=== PATIENT | male | born 1950 | race Caucasian/White ===

== ENCOUNTER 2021-06-26 10:51 | Emergency (ER) | payer MEDICARE ==
[~2021-06-26] VITALS: Ht 180.3 cm; Wt 104.3 kg
[2021-06-26] MEDS ORDERED: ACETAMINOPHEN500 MG PO (14:03)
== END 2021-06-26 14:14 | disposition home or self-care (01) ==
LOC: ER 10:51 → EDSEX 10:51 → ER 14:14
DX: M25.572 Pain in left ankle and joints of left foot (principal); Z98.890 Other specified postprocedural states
CPT/HCPCS: 73610

== ENCOUNTER → 2021-08-22 | Outpatient (CLI) | payer MEDICARE ==
[~2021-08-22] MED LIST: ACETAMINOPHEN500 MG PO
[2021-08-22 12:12] LABS: Campylobacter Sp Not Detected (NOT DETECT); Enteroaggregative E. coli-EAEC Not Detected (NOT DETECT); Plesiomonas Shigelloides Not Detected (NOT DETECT); Salmonella Sp Not Detected (NOT DETECT); Vibrio Cholerae Not Detected (NOT DETECT); Vibrio Sp Not Detected (NOT DETECT); Yersinia Enterocolitica Not Detected (NOT DETECT)
[2021-08-22 12:13] LABS: Adenovirus F 40/41 Not Detected (NOT DETECT); Astrovirus Not Detected (NOT DETECT); Cryptosporidium Not Detected (NOT DETECT); Cyclospora Cayetanensis Not Detected (NOT DETECT); E. Coli O157 Not Detected (NOT DETECT); Entamoeba Histolytica Not Detected (NOT DETECT); Enteropathogenic E. coli-EPEC Not Detected (NOT DETECT); Enterotoxigenic E. coli-ETEC Not Detected (NOT DETECT); Giardia Lamblia Not Detected (NOT DETECT); Norovirus GI/GII Not Detected (NOT DETECT); Rotavirus A Not Detected (NOT DETECT); Sapovirus Not Detected (NOT DETECT); Shiga Toxin-prod E. coli-STEC Not Detected (NOT DETECT); Shigella/Enteroin E. coli-EIEC Not Detected (NOT DETECT)
== END | disposition home or self-care (01) ==
LOC: LAB SHORT 09:28 → LAB 09:28
PROVIDERS: Physician Assistant Medical
DX: R19.7 Diarrhea, unspecified (principal)
CPT/HCPCS: 87324; 87507

== ENCOUNTER → 2021-09-03 | Outpatient (CLI) | payer MEDICARE ==
[~2021-09-03] MED LIST changes: +ELIQUIS5 M2 PO; +LOSA50 PO; +SOTO80 PO
== END | disposition home or self-care (01) ==
LOC: LAB SHORT 08:49 → PLD 08:49
DX: L57.0 Actinic keratosis (principal)
CPT/HCPCS: 88305

== ENCOUNTER 2021-12-01 08:15 | Day surgery (SDC) | payer MEDICARE ==
[~2021-12-01] VITALS: Ht 182.9 cm; Wt 103.3 kg
== END 2021-12-01 10:30 | disposition home or self-care (01) ==
LOC: ORSCSDS 08:15
PROVIDERS: Student in an Organized Health Care Education/Training Program
PROC: 0DB98ZX Excision of Duodenum, Via Natural or Artificial Opening Endoscopic, Diagnostic (ICD-10-PCS; principal; 2021-12-01 09:45)
PROC: 0DB58ZX Excision of Esophagus, Via Natural or Artificial Opening Endoscopic, Diagnostic (ICD-10-PCS; principal; 2021-12-01 09:45)
PROC: 0DB68ZX Excision of Stomach, Via Natural or Artificial Opening Endoscopic, Diagnostic (ICD-10-PCS; principal; 2021-12-01 09:45)
DX: R13.10 Dysphagia, unspecified (principal); K21.00 Gastro-esophageal reflux disease with esophagitis, without bleeding; K29.70 Gastritis, unspecified, without bleeding; K31.A19 Gastric intestinal metaplasia without dysplasia, unspecified site; K31.7 Polyp of stomach and duodenum; R19.7 Diarrhea, unspecified; I48.91 Unspecified atrial fibrillation; I25.10 Atherosclerotic heart disease of native coronary artery without angina pectoris; E11.22 Type 2 diabetes mellitus with diabetic chronic kidney disease; N18.9 Chronic kidney disease, unspecified; G47.33 Obstructive sleep apnea (adult) (pediatric); Z79.01 Long term (current) use of anticoagulants; Z79.899 Other long term (current) drug therapy
CPT/HCPCS: 82947; 88305; 88312; 88342; J2704; J7120

== ENCOUNTER 2021-12-12 10:52 | Emergency (ER) | payer MEDICARE ==
[~2021-12-12] VITALS: Ht 182.9 cm; Wt 102.1 kg
[2021-12-12] MEDS ORDERED: BETAPACE PO (11:21)
[2021-12-12] MEDS ORDERED: BASAGLAR K100 UNIT/8 SQ (11:21)
[2021-12-12] MEDS ORDERED: SILDENAFIL CITR20 M1 PO (11:21)
[2021-12-12 11:52] LABS: BASOPHILS ABSOLUTE AUTO 0.04 K/mm3 (0.00-0.23); BASOPHILS PERCENT AUTO 1 % (0-2); EOSINOPHILS ABSOLUTE AUTO 0.13 K/mm3 (0.00-0.68); EOSINOPHILS PERCENT AUTO 2 % (0-6); Hematocrit 43.9 % (37.0-53.0); Hemoglobin 14.6 g/dL (13.5-17.5); IMMATURE GRAN ABSOLUTE AUTO 0.01 K/mm3 (0.00-0.10); IMMATURE GRAN PERCENT AUTO 0 % (0-1); LYMPHOCYTES ABSOLUTE AUTO 2.82 K/mm3 (0.84-5.20); LYMPHOCYTES PERCENT AUTO 49 % (21-46); MONOCYTES ABSOLUTE AUTO 0.39 K/mm3 (0.16-1.47); MONOCYTES PERCENT AUTO 7 % (4-13); Mean Corpuscular HGB 30.4 pg (26.0-34.0); Mean Corpuscular HGB Conc 33.3 g/dL (31.5-36.5); Mean Corpuscular Volume 91 fL (80-100); Mean Platelet Volume 10.9 fL (9.1-12.4); NEUTROPHILS ABSOLUTE AUTO 2.43 K/mm3 (1.96-9.15); NEUTROPHILS PERCENT AUTO 42 % (41-73); Platelet Count 152 K/mm3 (150-400); RDW Coefficient Variation 12.6 % (11.7-14.2); Red Blood Cell Count 4.81 M/mm3 (4.30-5.90); White Blood Cell Count 5.82 K/mm3 (4.00-11.30)
[2021-12-12 12:26] LABS: Albumin, Blood 3.2 g/dL (3.4-5.0); Albumin/Globulin Ratio 0.9 (0.8-1.8); Bilirubin, Total 0.5 mg/dL (0.1-1.0); Calcium, Blood 8.9 mg/dL (8.5-10.1); Creatinine, Blood 1.57 mg/dL (0.60-1.20); Globulin, Blood 3.4 g/dL (2.2-4.0); Magnesium, Blood 2.3 mg/dL (1.6-2.4); Potassium, Blood 5.4 mmol/L (3.5-5.5); Total Protein, Blood 6.6 g/dL (6.4-8.2)
== END 2021-12-12 13:10 | disposition home or self-care (01) ==
LOC: ER 10:52
PROVIDERS: Physician Assistant
DX: I48.91 Unspecified atrial fibrillation (principal); K80.20 Calculus of gallbladder without cholecystitis without obstruction; Z79.899 Other long term (current) drug therapy
CPT/HCPCS: 71045; 76705; 80053; 83735; 83880; 84484; 85025; 93005; 93010; 99285-25

== ENCOUNTER 2023-02-26 10:08 | Emergency (ER) | payer MEDICARE ==
[~2023-02-26] VITALS: Ht 182.9 cm; Wt 99.8 kg
[~2023-02-26 10:08] MED LIST changes: +BASAGLAR K100 UNIT/8 SQ; +BETAPACE PO; +SILDENAFIL CITR20 M1 PO
[2023-02-26 10:15] VITALS: BP 133/75
== END 2023-02-26 12:19 | disposition home or self-care (01) ==
LOC: ER 10:08
DX: S86.112A Strain of other muscle(s) and tendon(s) of posterior muscle group at lower leg level, left leg, initial encounter (principal); I48.91 Unspecified atrial fibrillation; Z79.4 Long term (current) use of insulin; Z79.899 Other long term (current) drug therapy; X50.9XXA Other and unspecified overexertion or strenuous movements or postures, initial encounter; Y93.89 Activity, other specified; Y99.0 Civilian activity done for income or pay
CPT/HCPCS: 93971; 99283-25

== ENCOUNTER 2023-04-06 16:03 | Emergency (ER) | payer MEDICARE ==
[~2023-04-06] VITALS: Ht 180.3 cm; Wt 95.2 kg
[2023-04-06 16:25] VITALS: BP 168/82
[2023-04-06 16:55] LABS: BASOPHILS ABSOLUTE AUTO 0.03 K/mm3 (0.00-0.23); BASOPHILS PERCENT AUTO 0 % (0-2); EOSINOPHILS ABSOLUTE AUTO 0.03 K/mm3 (0.00-0.68); EOSINOPHILS PERCENT AUTO 0 % (0-6); Hematocrit 44.2 % (37.0-53.0); Hemoglobin 14.9 g/dL (13.5-17.5); IMMATURE GRAN ABSOLUTE AUTO 0.01 K/mm3 (0.00-0.10); IMMATURE GRAN PERCENT AUTO 0 % (0-1); LYMPHOCYTES ABSOLUTE AUTO 1.56 K/mm3 (0.84-5.20); LYMPHOCYTES PERCENT AUTO 19 % (21-46); MONOCYTES ABSOLUTE AUTO 0.78 K/mm3 (0.16-1.47); MONOCYTES PERCENT AUTO 9 % (4-13); Mean Corpuscular HGB 29.9 pg (26.0-34.0); Mean Corpuscular HGB Conc 33.7 g/dL (31.5-36.5); Mean Corpuscular Volume 89 fL (80-100); Mean Platelet Volume 10.2 fL (9.1-12.4); NEUTROPHILS ABSOLUTE AUTO 5.92 K/mm3 (1.96-9.15); NEUTROPHILS PERCENT AUTO 71 % (41-73); Platelet Count 200 K/mm3 (150-400); RDW Coefficient Variation 12.6 % (11.7-14.2); RDW Standard Deviation 40.8 fL (35.1-46.3); Red Blood Cell Count 4.98 M/mm3 (4.30-5.90); White Blood Cell Count 8.33 K/mm3 (4.00-11.30)
[2023-04-06 17:23] LABS: Magnesium, Blood 2.1 mg/dL (1.6-2.4)
[2023-04-06 17:24] LABS: Albumin, Blood 3.5 g/dL (3.4-5.0); Albumin/Globulin Ratio 0.7 (0.8-1.8); Bilirubin, Total 0.9 mg/dL (0.1-1.0); Bun/Creatinine Ratio 12.2 (12.0-20.0); Calcium, Blood 9.9 mg/dL (8.5-10.1); Creatinine, Blood 2.05 mg/dL (0.60-1.20); Globulin, Blood 4.7 g/dL (2.2-4.0); Potassium, Blood 4.1 mmol/L (3.5-5.5); Total Protein, Blood 8.2 g/dL (6.4-8.2)
[2023-04-06] MEDS ORDERED: DiphenhydrAMINE HCl 50 MG/ML 1ML Vial IV ONE (20:30)
[2023-04-06] MEDS ORDERED: Metoclopramide HCl 5MG / ML 2ML Vial IV ONE (20:30)
[2023-04-06] MEDS ORDERED: NS 1,000 ML IV SCH (20:30)
[2023-04-06] MEDS ORDERED: Ondansetron HCl 2 MG / ML 2ML Vial IV ONE (21:40)
[2023-04-06 21:45] LABS: Source, Urine Clean Catch
[2023-04-06] MEDS ORDERED: Ketorolac Tromethamine 15mg Vial IV ONE (21:50)
[2023-04-06] MEDS ORDERED: DiphenhydrAMINE HCl 50 MG/ML 1ML Vial IM ONE (21:50)
[2023-04-06 21:58] LABS: Appearance, Urine Clear (Clear); Bilirubin, Urine Neg (Neg); Blood, Urine 2+ (Neg); Color, Urine Yellow (P-Yellow); Glucose Qualitative, Urine 2+ (Neg); Ketones, Urine 1+ (Neg); Leukocyte Esterase, Urine Neg (Neg); Nitrite, Urine Neg (Neg); Protein, Urine 4+ (Neg); Urobilinogen, Urine NORM (Normal)
[2023-04-06] MEDS ORDERED: Promethazine HCl 25 MG Tab PO ONE (22:25)
[2023-04-06 22:30] LABS: Bacteria Few /hpf; Red Blood Cells, Urine 0-2 /hpf (0-2); Squamous Epithelial Cells Few /hpf (Few); White Blood Cells, Urine 0-2 /hpf (0-5)
[2023-04-06] MEDS ORDERED: PROM25 PO (23:14)
== END 2023-04-06 23:22 | disposition home or self-care (01) ==
LOC: ER 16:03
PROVIDERS: Physician Assistant; Student in an Organized Health Care Education/Training Program
DX: R11.2 Nausea with vomiting, unspecified (principal); N17.9 Acute kidney failure, unspecified; E11.9 Type 2 diabetes mellitus without complications; I25.10 Atherosclerotic heart disease of native coronary artery without angina pectoris; Z79.4 Long term (current) use of insulin; Z79.899 Other long term (current) drug therapy
CPT/HCPCS: 80053; 81001; 83690; 83735; 85025; 93005; 93010; 96361; 96374; 96375; 96376; 99284-25; A9270; J1200; J1885; J2405; J2765; J7030

== ENCOUNTER → 2024-01-26 | Outpatient (CLI) | payer OTHER ==
[~2024-01-26] MED LIST changes: +PROM25 PO
[2024-01-26 16:09] LABS: BASOPHILS ABSOLUTE AUTO 0.05 K/mm3 (0.00-0.23); BASOPHILS PERCENT AUTO 1 % (0-2); EOSINOPHILS ABSOLUTE AUTO 0.09 K/mm3 (0.00-0.68); EOSINOPHILS PERCENT AUTO 2 % (0-6); Hematocrit 45.6 % (37.0-53.0); Hemoglobin 15.8 g/dL (13.5-17.5); IMMATURE GRAN ABSOLUTE AUTO 0.01 K/mm3 (0.00-0.10); IMMATURE GRAN PERCENT AUTO 0 % (0-1); LYMPHOCYTES ABSOLUTE AUTO 2.09 K/mm3 (0.84-5.20); LYMPHOCYTES PERCENT AUTO 38 % (21-46); MONOCYTES ABSOLUTE AUTO 0.43 K/mm3 (0.16-1.47); MONOCYTES PERCENT AUTO 8 % (4-13); Mean Corpuscular HGB Conc 34.6 g/dL (31.5-36.5); Mean Corpuscular Volume 90 fL (80-100); Mean Platelet Volume 10.6 fL (9.1-12.4); NEUTROPHILS ABSOLUTE AUTO 2.83 K/mm3 (1.96-9.15); NEUTROPHILS PERCENT AUTO 52 % (41-73); Platelet Count 151 K/mm3 (150-400); RDW Coefficient Variation 12.6 % (11.7-14.2); RDW Standard Deviation 41.3 fL (35.1-46.3); Red Blood Cell Count 5.09 M/mm3 (4.30-5.90)
[2024-01-26 16:21] LABS: Albumin, Blood 3.6 g/dL (3.4-5.0); Albumin/Globulin Ratio 1.1 (0.8-1.8); Bilirubin, Total 0.6 mg/dL (0.1-1.0); Bun/Creatinine Ratio 10.7 (12.0-20.0); Calcium, Blood 9.8 mg/dL (8.5-10.1); Creatinine, Blood 1.69 mg/dL (0.60-1.20); Globulin, Blood 3.4 g/dL (2.2-4.0); Potassium, Blood 5.1 mmol/L (3.5-5.5)
== END | disposition home or self-care (01) ==
LOC: LAB SHORT 14:53 → LAB 14:53
PROVIDERS: Family Medicine
DX: E11.65 Type 2 diabetes mellitus with hyperglycemia (principal); I82.91 Chronic embolism and thrombosis of unspecified vein; I12.9 Hypertensive chronic kidney disease with stage 1 through stage 4 chronic kidney disease, or unspecified chronic kidney disease; E11.22 Type 2 diabetes mellitus with diabetic chronic kidney disease; N18.9 Chronic kidney disease, unspecified
CPT/HCPCS: 80053; 83036; 85025